=== PATIENT | female | born 1960 | race Caucasian/White ===

== ENCOUNTER 2018-03-26 15:06 | Emergency (ER) | payer OTHER ==
[~2018-03-26] VITALS: Ht 165.1 cm; Wt 78.0 kg
[~2018-03-26 15:06] MED LIST: HYDR25TA4 PO; LORA-258
--- NOTE | 2018-03-26 15:15 | NUR ---
BIB SELF PER PT "HEADSPINS [id number]". VAGINAL BLEED W/CLOTS X3DAYS, STOMACH PAIN, NAUSEA, BACK PAIN. NAD NOTED, VSS, RESP EVEN AND UNLABORED.PT WAS PUT ON MONITOR, WAITING FOR MD SHEA
--- NOTE | 2018-03-26 16:04 | NUR ---
ALDA ESPOSITO AT BEDSIDE FOR EVAL.
[2018-03-26 16:53] LABS: APPEARANCE,URINE Clear (CLEAR); BILIRUBIN,URINE Negative (NEGATIVE); BLOOD, URINE Large Ery/uL (NEGATIVE); COLOR,URINE Yellow (YELLOW); KETONES,URINE Negative (NEGATIVE); LEUKOCYTE ESTERASE ,URINE Negative (NEGATIVE); NITRITE, URINE Negative (NEGATIVE); PROTEIN,URINE Negative (NEGATIVE); UGLUCOSE Negative (NEGATIVE); UROBILINOGEN,URINE 0.2 EU/dL (0.2)
[2018-03-26 17:11] LABS: BACTERIA,URINE Few /HPF (None Seen); SQUAMOUS EPITHELIAL CELL,UR Few /HPF (None Seen)
--- NOTE | 2018-03-26 18:08 | NUR ---
Patient discharged to home in stable condition. Written and verbal after care instructions given. Patient verbalizes understanding of instruction.
[2018-03-26 18:09] VITALS: BP 132/76
== END 2018-03-26 18:10 | disposition home or self-care (01) ==
LOC: ER 15:08
DX: N95.0 Postmenopausal bleeding (principal); F41.9 Anxiety disorder, unspecified; E78.5 Hyperlipidemia, unspecified; F17.200 Nicotine dependence, unspecified, uncomplicated; Z98.890 Other specified postprocedural states; Z88.8 Allergy status to other drugs, medicaments and biological substances; Z79.899 Other long term (current) drug therapy
CPT/HCPCS: 76856; 81001; 84703; 99285; A4606; A6402; Z7610; 81000-TC

== ENCOUNTER 2019-10-01 03:28 | Emergency (ER) | payer OTHER ==
[~2019-10-01] VITALS: Ht 165.1 cm; Wt 76.7 kg
[2019-10-01] MEDS ORDERED: DIAZEPAM 10 MG TABLET ONE (03:51)
[2019-10-01] MEDS ORDERED: DIAZEPAM 10 MG TABLET PO ONE (04:00)
[2019-10-01 04:04] LABS: BASOPHILS # (AUTO) 0.1 /CMM (0.0-0.2); BASOPHILS % (AUTO) 0.8 % (0.0-2.0); EOSINOPHILS % (AUTO) 3.5 % (0.0-6.0); HEMATOCRIT 40 % (33-45); HEMOGLOBIN 13.3 g/dL (11.5-14.8); LYMPHOCYTES # (AUTO) 3.1 /CMM (0.8-4.8); MEAN CORPUSCULAR HGB CONC 33 g/dl (31.0-36.0); MEAN CORPUSCULAR VOLUME 89 fL (82-100); MONOCYTES # (AUTO) 0.8 /CMM (0.1-1.30); MONOCYTES % (AUTO) 6.9 % (2.0-12.0); NEUTROPHILS # (AUTO) 7.5 /CMM (1.8-8.9); NEUTROPHILS % (AUTO) 62.8 % (43.0-81.0); PLATELET COUNT (AUTO) 248 /CMM (150-450); RED BLOOD CELL COUNT(AUTO) 4.51 MIL/uL (4.0-5.2)
--- NOTE | 2019-10-01 04:09 | NUR ---
PT CAME TO ER BED 8 C/O DIZZINESS. PT STATES THAT SHE HAD WENT TO [facility] TWO DAYS AGO WHEN SHE HAD FELL ON THE STREET. DENIES HITTING HER HEAD. PT STATES SHE WAS DISCHARGED AND TODAY SHE FELT NAUSEOUS AND LIKE "ON A ROLLERCOASTER". AAOX4. NO SOB. BREATHING EVENLY AND UNLABORED ON ROOM AIR. CONNECTED TO MONITOR.
[2019-10-01 04:24] LABS: CALCIUM, SERUM 9.5 mg/dL (8.5-10.1); CREATININE 0.9 mg/dL (0.6-1.3)
--- NOTE | 2019-10-01 04:35 | NUR ---
pt refused ct. states that she already had ct at [facility].
[2019-10-01 05:35] VITALS: BP 122/69
--- NOTE | 2019-10-01 05:35 | NUR ---
IV removed. Catheter intact and site benign. Pressure and 4x4 applied to site. No bleeding noted.Patient discharged to home in stable condition. Written and verbal after care instructions given. Patient verbalizes understanding of instruction.
== END 2019-10-01 05:36 | disposition home or self-care (01) ==
LOC: ER 03:34
DX: R42 Dizziness and giddiness (principal); F17.200 Nicotine dependence, unspecified, uncomplicated; Z98.890 Other specified postprocedural states; Z88.8 Allergy status to other drugs, medicaments and biological substances; Z79.899 Other long term (current) drug therapy
CPT/HCPCS: 36415; 80048-TC; 85025-TC

== ENCOUNTER 2024-01-20 13:21 | Emergency (ER) | payer OTHER ==
[~2024-01-20] VITALS: Ht 162.6 cm; Wt 74.4 kg
[~2024-01-20 13:21] MED LIST changes: +CEPH500C2 PO
[2024-01-20 13:34] VITALS: TEMP 97.7
[2024-01-20 14:05] LABS: BASOPHILS % (AUTO) 0.4 % (0.0-2.0); EOSINOPHILS # (AUTO) 0.1 K/uL (0.0-0.7); EOSINOPHILS % (AUTO) 0.5 % (0.0-6.0); HEMATOCRIT 38 % (33-45); HEMOGLOBIN 12.8 g/dL (11.5-14.8); LYMPHOCYTES # (AUTO) 2.3 K/uL (0.8-4.8); LYMPHOCYTES % (AUTO) 23.6 % (20.0-44.0); MEAN CORPUSCULAR HEMOGLOBIN 30 PG (26.0-33.0); MEAN CORPUSCULAR HGB CONC 34 g/dl (31.0-36.0); MEAN CORPUSCULAR VOLUME 88 fL (82-100); MONOCYTES # (AUTO) 0.5 K/uL (0.1-1.30); MONOCYTES % (AUTO) 5.6 % (2.0-12.0); NEUTROPHILS # (AUTO) 6.9 K/uL (1.8-8.9); NEUTROPHILS % (AUTO) 69.9 % (43.0-81.0); PLATELET COUNT (AUTO) 263 K/uL (150-450); RED BLOOD CELL COUNT(AUTO) 4.25 MIL/uL (4.0-5.2); RED CELL DISTRIBUTION WIDTH 14.1 % (11.5-15.0); WHITE BLOOD COUNT (AUTO) 9.8 K/uL (4.3-11.0)
[2024-01-20 14:17] LABS: CALCIUM, SERUM 9.7 mg/dL (8.5-10.1); CARBON DIOXIDE 25 mmol/L (21-32); CHLORIDE 104 mmol/L (98-107); CREATININE 0.8 mg/dL (0.6-1.3); GLUCOSE 114 mg/dL (74-106); POTASSIUM 3.7 mmol/L (3.5-5.1); SODIUM SERUM 141 mmol/L (136-145); UREA NITROGEN, BLOOD 8 mg/dL (7-18)
[2024-01-20 14:29] LABS: NT-PRO BNP 295 pg/mL (0-125)
[2024-01-20 15:28] VITALS: BP 110/80; O2SAT 98
== END 2024-01-20 15:27 | disposition home or self-care (01) ==
LOC: ER 13:25
DX: R07.89 Other chest pain (principal); R05.9 Cough, unspecified; R53.83 Other fatigue; I10 Essential (primary) hypertension; E78.5 Hyperlipidemia, unspecified; F41.9 Anxiety disorder, unspecified; Z88.8 Allergy status to other drugs, medicaments and biological substances; F17.200 Nicotine dependence, unspecified, uncomplicated
CPT/HCPCS: 36415; 71045-TC; 80048-TC; 83880; 84484-TC; 85025-TC